=== PATIENT | female | born 1930 | race Caucasian/White ===

== ENCOUNTER → 2016-04-12 | Outpatient (CLI) | payer BC ==
[~2016-04-12] MED LIST: ADVIN10/60 INH; AMLO-110 PO; CALC500C70 PO; COEN1CAP28 PO; ESCI10TA17 PO; MULTCHW PO; PANC6000 PO; POTA20TA13 PO; PRAV20TA PO
--- NOTE | 2016-04-12 17:12 | DIAGNOSTIC IMAGING REPORT ---
LEFT HUMERUS MIN 2 VIEWS ROUTINE, LEFT ELBOW MIN 3 VIEWS ROUTINE, LEFT FOREARM 2 VIEWS ROUTINE CLINICAL HISTORY: Fall. Left upper extremity pain. COMPARISON STUDY: None. FINDINGS: No acute fracture or dislocation within the humerus. Displacement the posterior and anterior humeral fat pads consistent with an elbow effusion. No dislocation within the left elbow. Moderate osteoarthritis within the left elbow. There are associated marginal osteophytes. There is medial soft tissue swelling within the elbow. Well-corticated ossific density anterior to the distal humerus is likely due to an old injury. No definite acute fractures identified within the left elbow. The radius and ulna appear intact. IMPRESSION: 1. Left elbow effusion. This can be seen in the setting of an occult fracture. However, no acute fracture or dislocation is identified at this time within the left humerus, left elbow, or left forearm. 2. Repeat left elbow radiograph in 2 weeks is recommended to assess for an occult fracture. 3. Medial soft tissue swelling within the left elbow. Electronically signed by: Juanpablo Valencia M.D. 04/12/2016 5:11 PM Dictated Date/Time: 04/12/2016 5:04 PM
== END | disposition home or self-care (01) ==
LOC: C.RAD 15:23
PROVIDERS: ATTEND Nurse Practitioner Family
DX: S59.912A Unspecified injury of left forearm, initial encounter (principal); S59.902A Unspecified injury of left elbow, initial encounter; M25.422 Effusion, left elbow; M79.89 Other specified soft tissue disorders; W19.XXXA Unspecified fall, initial encounter

== ENCOUNTER → 2016-04-21 | Outpatient (CLI) | payer BC | END | disposition home or self-care (01) | LOC: C.LABFOXMH 16:53 | PROVIDERS: ATTEND Internal Medicine | DX: R35.0 Frequency of micturition (principal) ==

== ENCOUNTER → 2016-04-22 | Outpatient (CLI) | payer BC ==
[2016-04-22 08:36] LABS: HEMATOCRIT 43.4 % (37-47); MEAN CELL VOLUME 90.6 fL (80-100); MEAN CORPUSCULAR HEMOGLOBIN 30.1 pg (25-34); MEAN CORPUSCULAR HGB CONC 33.2 g/dl (32-36); MEAN PLATELET VOLUME 10.5 fL (7.4-10.4); PLATELET COUNT 212 K/uL (130-400); RED BLOOD COUNT 4.79 M/uL (4.2-5.4); WHITE BLOOD COUNT 4.64 K/uL (4.8-10.8)
[2016-04-22 08:42] LABS: ALT/SGPT 25 U/L (12-78); BLOOD UREA NITROGEN 17 mg/dl (7-18); BUN/CREATININE RATIO 17.4 (10-20); CALCIUM 8.9 mg/dl (8.5-10.1); CARBON DIOXIDE 29 mmol/L (21-32); CHLORIDE 103 mmol/L (98-107); CREATININE 0.99 mg/dl (0.60-1.20); GLUCOSE 91 mg/dl (70-99); SODIUM 139 mmol/L (136-145)
[2016-04-22 08:53] LABS: ALB/GLOB RATIO 1.1 (0.9-2); ALKALINE PHOSPHATASE 124 U/L (45-117); AST/SGOT 22 U/L (15-37)
== END | disposition home or self-care (01) ==
LOC: C.LABFOXMH 08:19
PROVIDERS: ATTEND Nurse Practitioner Family
DX: R53.83 Other fatigue (principal)

== ENCOUNTER → 2016-04-26 | Outpatient (CLI) | payer BC ==
--- NOTE | 2016-04-26 11:46 | DIAGNOSTIC IMAGING REPORT ---
LEFT ELBOW 3 VIEWS CLINICAL HISTORY: Left elbow injury. FINDINGS: 3 views of the left elbow are compared to study dated 04/12/2016. The skeletal structures are osteopenic. No acute or healing fracture is clearly identified. There is no dislocation. Moderate arthritic change is identified. There are are marginal osteophytes as well as enthesophytes arising from the humeral epicondyles. Spurring is noted from the radial head. A well-corticated ossific density anterior to the distal humerus is unchanged and likely on a degenerative basis or related to remote trauma. No joint effusion is clearly seen. Dorsal soft tissue swelling is noted. IMPRESSION: 1. Osteopenia and arthritic change as above. No acute or healing fracture is clearly seen. 2. There is no definite elbow joint effusion. Dorsal soft tissue edema is noted. Electronically signed by: Scott Mitchell M.D. 04/26/2016 11:44 AM Dictated Date/Time: 04/26/2016 11:41 AM
== END | disposition home or self-care (01) ==
LOC: C.RAD 10:51
PROVIDERS: ATTEND Nurse Practitioner Family
DX: S59.902A Unspecified injury of left elbow, initial encounter (principal); W19.XXXA Unspecified fall, initial encounter

== ENCOUNTER → 2016-05-07 | Outpatient (CLI) | payer BC | END | disposition home or self-care (01) | LOC: C.LABFOXMH 17:37 | PROVIDERS: ATTEND Internal Medicine | DX: R50.9 Fever, unspecified (principal) ==

== ENCOUNTER → 2016-08-10 | Outpatient (CLI) | payer BC ==
--- NOTE | 2016-08-10 17:30 | DIAGNOSTIC IMAGING REPORT ---
L-SPINE MIN 4 VIEWS ROUTINE CLINICAL HISTORY: LOW BACK PAIN COMPARISON STUDY: 10/29/2015 FINDINGS: There are surgical clips within the right upper quadrant consistent with a prior cholecystectomy. There are moderately advanced multilevel degenerative changes similar to the preceding study. There is 3.7 mm of anterior subluxation of C3 on C4. There is 9 mm anterior subluxation of C4 on C5. Both these findings were present on the prior study. No acute fractures are visualized. There is a transitional L5 vertebra with excessively transverse process sacral articulation on the left. IMPRESSION: 1. No acute fractures. 2. Multilevel degenerative change. Multilevel facet joint arthropathy. 3. Stable anterolisthesis of L3 on L4 and L4 on L5 4. 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 08/10/2016 5:29 PM Dictated Date/Time: 08/10/2016 5:27 PM
== END | disposition home or self-care (01) ==
LOC: C.RAD 16:53
PROVIDERS: ATTEND Internal Medicine
DX: M54.5 Low back pain (principal); M85.88 Other specified disorders of bone density and structure, other site

== ENCOUNTER 2017-03-26 18:43 | Emergency (ER) | payer BC ==
[~2017-03-26] VITALS: Ht 162.6 cm; Wt 82.6 kg
[2017-03-26 18:55] VITALS: Ht 162.6 cm; Wt 82.6 kg
--- NOTE | 2017-03-26 19:08 | EMERGENCY ROOM VISIT NOTE ---
History Report prepared by Ema: Wolf Vega Under the Supervision of: Dr. Stephanie Joyce D.O. First contact with patient: 19:00 Chief Complaint: LACERATION/CUT (NON-SUTURE) Stated Complaint: FELL, GASH ON RIGHT EYE BROW Nursing Triage Summary: laceration to right forehead area fell leaving a restaurant History of Present Illness The patient is an 86 year old female who presents to the Emergency Room with complaints of a sudden laceration to the right eye brow area due to a fall prior to arrival this evening. She states that she walking out of a restaurant this evening, and did not notice a curb, and proceeded to fall. She says that she now has head pain around the laceration area, as well as some right knee pain, but is able to bend the leg. The patient notes that she felt completely fine before the fall, and remembers the whole event. She denies any back pain, elbow pain, abdominal pain, or hip pain. The patient also denies any dizziness, weakness, or nausea before the incident. She adds that she took a baby Aspirin last night, but does not take any blood thinners regularly. She has a history of bilateral knee replacements. Source of History: patient, spouse/significant other, nursing staff Onset: HEAD [employer] this evening Position: other (right eyebrow area) Quality: other (laceration) Timing: other (sudden) Associated Symptoms: No LOC, No nausea, No abdominal pain, No back pain (or hip pain or elbow pain), No weakness Note: Associated symptoms: Right knee pain. Denies dizziness. Review of Systems See HPI for pertinent positives & negatives. A total of 10 systems reviewed and were otherwise negative. Past Medical & Surgical Medical Problems: (1) Age-related macular degeneration (2) Asthma, Unspecified (3) Benign hypertension (4) Cellulitis of breast (5) Concussion (6) Concussion (7) Diarrhea (8) Dyslipidemia (9) Fall (10) General Osteoarthrosis (11) Hypertension Nos (12) Lumpectomy of breast (13) Nausea and vomiting (14) Scalp hematoma (15) Sick sinus syndrome Surgical Problems: (1) Knee Joint Replacement Status (2) Lens Replacement Nec Family History Family history omitted secondary to patient's advanced age. Social History Smoking Status: Never Smoker Alcohol Use: none Drug Use: none Marital Status: Housing Status: assisted living Occupation Status: retired Current/Historical Medications Scheduled Amlodipine (Norvasc), 5 MG PO DAILY Calcium/Vitamin D (Os-Venkata 500 Plus D), 1 TAB PO DAILY Carvedilol (Carvedilol), 3.125 MG PO BID Coenzyme Q10 (Ubidecarenone) (Coq10), 200 MG PO DAILY Escitalopram (Lexapro), 10 MG PO DAILY Multiple Vitamins W/ Minerals (Centrum Silver), 1 TAB PO DAILY Pancrelipase (Lipase-Protease- (Creon), 1 CAP PO TIDM Potassium Chloride Microencaps (Potassium Chloride Er), 20 MEQ PO DAILY Pravastatin (Pravachol ), 20 MG PO DAILY Scheduled PRN Fluticasone Prop/Salmeterol (Advair Diskus 100/50 60 Dose), 1 PUFF INH BID PRN for SOB/Wheezing Allergies Coded Allergies: Midazolam (Verified Allergy, Severe, ANAPHYLAXIS, 03/26/17) Atorvastatin (Verified Allergy, Unknown, myalgia, 03/26/17) Niacin (Verified Adverse Reaction, Unknown, flushing, 03/26/17) Physical Exam Vital Signs Date Time Temp Pulse Resp B/P (MAP) Pulse Ox O2 Delivery O2 Flow Rate FiO2 03/27/17 00:08 70 20 170/93 92 Room Air 03/26/17 22:24 71 20 178/82 92 Room Air 03/26/17 20:30 36.7 70 20 161/101 94 Room Air 03/26/17 18:55 36.7 83 20 146/81 92 Room Air Physical Exam GENERAL: alert, well appearing, well nourished, no distress, non-toxic EYE EXAM: Normal conjunctiva, PERRL and EOM's grossly intact, pt states vision is normal. No evidence of hyphema or subconjunctival hemorrhage. OROPHARYNX: Large area of swelling and contusion superior to right eyebrow. Small laceration noted, no active bleeding. Slight ecchymosis noted to eyelids superiorly. Mild pain along superior orbital ridge. No evidence of dental trauma. NECK: supple, no nuchal rigidity, no adenopathy, non-tender LUNGS: Clear to auscultation. Normal chest wall mechanics HEART: no murmurs, S1 normal and S2 normal ABDOMEN: abdomen soft, non-tender, normo-active bowel sounds, no masses, no rebound or guarding. BACK: Back is symmetrical on inspection and there is no deformity, no midline tenderness SKIN: no rashes and no bruising UPPER EXTREMITIES: upper extremities are grossly normal. PELVIS: Pelvis stable, no hip tenderness. LOWER EXTREMITIES: Superficial abrasion to right knee, full range of motion. Vertical midline incision consistent with prior knee replacements, normal bilateral lower extremity pulses. No pitting edema. NEURO EXAM: Normal sensorium, cranial nerves II-XII grossly intact, normal speech, no gross weakness of arms, no gross weakness of legs. Medical Decision & Procedures ER Provider Diagnostic Interpretation: Radiology results have been interpreted by the radiologist and reviewed by me. RIGHT KNEE 2 VIEWS HISTORY: Right knee pain. trauma COMPARISON: Right knee 07/23/2015. FINDINGS: There is a right total knee arthroplasty. The hardware appears intact. No fracture or dislocation. No significant knee effusion. Anterior medial soft tissue swelling. No radiopaque foreign bodies. IMPRESSION: No fracture or dislocation within the right knee. Electronically signed by: Juanpablo Valencia M.D. 03/26/2017 7:44 PM Dictated Date/Time: 03/26/2017 7:[address]AST CT DOSE: 1519.59 mGy.cm HISTORY: Head injury. trauma TECHNIQUE: Multiaxial CT images of the head were performed without the use of intravenous contrast. Automated exposure control was utilized for this study. A dose lowering technique was utilized adhering to the principles of ALARA. Comparison: Head CT 08/28/2014. Findings: The paranasal sinuses and mastoid air cells are clear. The calvarium and skull base are intact. There is no mass, midline shift, acute infarct. White matter hypodensity is nonspecific but suggestive of microvascular ischemic change. The ventricles and sulci demonstrate mild age-related involutional changes. There is a right supraorbital soft tissue hematoma with a laceration. Subtle 1 mm extra-axial hyperdensity within the right anterior frontal region best in image 12. This may represent a cortical bridging vein. However this is deep to the soft tissue swelling and could represent a tiny subdural hematoma. Stable 14 mm calcification along the anterior falx. This likely represents a meningioma. Impression: 1. Subtle 1 mm extra-axial hyperdensity within the right anterior frontal region. This may represent a cortical bridging vein. However this is deep to the soft tissue swelling and could represent a tiny subdural hematoma. Therefore, follow-up head CT in 12 hours is recommended to ensure stability. 2. Right supraorbital soft tissue laceration. Electronically signed by: Juanpablo Valencia M.D. 03/26/2017 8:14 PM Dictated Date/Time: 03/26/2017 8:[address] DOSE: HISTORY: Neck pain. Fall. trauma TECHNIQUE: Multiaxial CT images of the cervical spine were performed and reformatted in the sagittal and coronal plane without the use of contrast. A dose lowering technique was utilized adhering to the principles of ALARA. COMPARISON: Cervical spine CT 09/24/2013. FINDINGS: No fractures. No subluxation. Prevertebral soft tissues and the C1-C2 interval are intact. No pneumothorax. Stable advanced degenerative changes within the lower cervical spine. There is straightening of the cervical spine. IMPRESSION: No fractures within the cervical spine. Electronically signed by: Juanpablo Valencia M.D. 03/26/2017 8:19 PM Dictated Date/Time: 03/26/2017 8:[address] head: Comparison: 03/26/2017 and 1955 No acute intracranial abnormality. Chronic small vessel ischemic disease and senescent changes. Small meningioma along the left interhemispheric fissure. Moderate sized frontal scalp soft tissue hematoma. No acute osseous abnormality. Mild mucosal thickening of paranasal sinuses. Radiologist: Ron Oliveira M.D. Medications Administered Medications (Trade) Dose Ordered Sig/Desean Route Start Time Stop Time Status Last Admin Dose Admin Diphtheria/ Pertussis/Tetanus Vacc (Adacel Inj) 0.5 ml ONCE ONCE IM. 03/26/17 19:45 03/26/17 19:46 DC 03/26/17 19:43 0.5 ML Acetaminophen (Tylenol Tab) 650 mg NOW STAT PO 03/26/17 21:06 03/26/17 21:07 DC 03/26/17 21:56 650 MG ED Course 1899: The patient was evaluated in room B4B. A complete history and physical exam was performed. 1944: Ordered Adacel Inj 0.5 ml IM. 2051: I reevaluated the patient and had an extensive bedside conversation. She prefers not to be transferred to a trauma facility. I recommended a repeat CT here and the patient and her are agreeable. Repeat exam was unchanged with exception of mild migration of the patient's ecchymosis inferiorly from the supraorbital ridge down into the right superior eyelid. 0010: Additional reevaluation at bedside. Patient states she feels improved. Swelling has diminished, although appearance of ecchymosis is following gravity and is now more pronounced in her periorbital region. Patient has gotten up to the bathroom and ambulated with a steady gait, denies dizziness or lightheadedness. No nausea or vomiting, patient denies any vision changes. Extensive bedside discussion with patient as well as daughter and son-in-law which are now present at bedside regarding her condition, imaging results, care for her wound, close follow-up with family doctor, symptoms to watch and return for. Medical Decision Differential diagnoses include major intracranial, cervical, spinal, thoracic, abdominal, pelvic and neurologic injury. Fracture, contusion, sprain, strain, laceration, abrasions included as well. Patient well-appearing here and no evolving symptoms to suggest increased intracranial bleeding or increased intracranial pressure. Small abrasion noted over the area of the initial contusion to the inferior aspect of the right forehead in the right supraorbital region. During additional observation time in the emergency department some of the ecchymosis and swelling noted there began to migrate inferiorly. Patient with no other evidence of extremity trauma. No changes in exam on repeat evaluations to suggest any evolving occult traumatic injury. Patient's vital signs stable throughout. Repeat CAT scan did not show any residual or evolving intracranial hemorrhage. Patient and relating here with steady gait, tolerating sips of by mouth at bedside. Extensive bedside discussion with her as well as additional family that had since joining them regarding her diagnosis, imaging findings, need for close follow-up, symptoms to watch and return for, treatment of pain at home, precautions in light of her trauma, patient and her family verbalized understanding were agreeable with plan. Medication Reconcilliation Current Medication List: was personally reviewed by me Blood Pressure Screening Patient's blood pressure: Elevated blood pressure Blood pressure disposition: Elevated BP felt to be situational Impression Primary Impression: Closed head injury Additional Impressions: Scalp hematoma Fall Abrasion Critical Care I have personally spent greater than 35 minutes of critical care time in the direct management of this patient. This includes bedside care, interpretation of diagnostic studies, and testing, discussion with consultants, patient, and family members, and other required patient management activities. This 35 minutes is in excess of all separately billable procedures. Scribe Attestation The scribe's documentation has been prepared under my direction and personally reviewed by me in its entirety. I confirm that the note above accurately reflects all work, treatment, procedures, and medical decision making performed by me. Departure Information Dispostion Home / Self-Care Referrals Kp Nunez M.D. (PCP) Patient Instructions My [facility] Additional Instructions Please continue regular medications as prescribed. You may use Tylenol for any pain. Do not take aspirin, ibuprofen, Advil, Aleve, Motrin, naproxen. Please change the dressing to the wound daily. The bruising noted will slowly appear to migrate down into your face. This is normal. You may use ice intermittently to help with pain. You may eat normally. Please do not drink any alcohol. If you develop a worsening headache, nausea or vomiting, dizziness , or vision changes, please return to the emergency room immediately. If you have any other new or concerning symptoms please return to the ER. Please make a note that your tetanus shot was updated tonight. Problem Qualifiers Primary Impression: Closed head injury Encounter type: initial encounter Qualified Codes: S09.90XA - Unspecified injury of head, initial encounter Additional Impressions: Scalp hematoma Encounter type: initial encounter Qualified Codes: S00.03XA - Contusion of scalp, initial encounter Fall Encounter type: initial encounter Qualified Codes: W19.XXXA - Unspecified fall, initial encounter
[2017-03-26] MEDS ORDERED: DIPHTHERIA/TETANUS/PERTUSSIS 0.5 ML SYR/VIAL IM. ONE (19:45)
--- NOTE | 2017-03-26 19:45 | DIAGNOSTIC IMAGING REPORT ---
RIGHT KNEE 2 VIEWS HISTORY: Right knee pain. trauma COMPARISON: Right knee 07/23/2015. FINDINGS: There is a right total knee arthroplasty. The hardware appears intact. No fracture or dislocation. No significant knee effusion. Anterior medial soft tissue swelling. No radiopaque foreign bodies. IMPRESSION: No fracture or dislocation within the right knee. Electronically signed by: Juanpablo Valencia M.D. 03/26/2017 7:44 PM Dictated Date/Time: 03/26/2017 7:42 PM
--- NOTE | 2017-03-26 20:15 | DIAGNOSTIC IMAGING REPORT ---
HEAD CT NONCONTRAST CT DOSE: 1519.59 mGy.cm HISTORY: Head injury. trauma TECHNIQUE: Multiaxial CT images of the head were performed without the use of intravenous contrast. Automated exposure control was utilized for this study. A dose lowering technique was utilized adhering to the principles of ALARA. Comparison: Head CT 08/28/2014. Findings: The paranasal sinuses and mastoid air cells are clear. The calvarium and skull base are intact. There is no mass, midline shift, acute infarct. White matter hypodensity is nonspecific but suggestive of microvascular ischemic change. The ventricles and sulci demonstrate mild age-related involutional changes. There is a right supraorbital soft tissue hematoma with a laceration. Subtle 1 mm extra-axial hyperdensity within the right anterior frontal region best in image 12. This may represent a cortical bridging vein. However this is deep to the soft tissue swelling and could represent a tiny subdural hematoma. Stable 14 mm calcification along the anterior falx. This likely represents a meningioma. Impression: 1. Subtle 1 mm extra-axial hyperdensity within the right anterior frontal region. This may represent a cortical bridging vein. However this is deep to the soft tissue swelling and could represent a tiny subdural hematoma. Therefore, follow-up head CT in 12 hours is recommended to ensure stability. 2. Right supraorbital soft tissue laceration. Electronically signed by: Juanpablo Valencia M.D. 03/26/2017 8:14 PM Dictated Date/Time: 03/26/2017 8:08 PM
--- NOTE | 2017-03-26 20:20 | DIAGNOSTIC IMAGING REPORT ---
CERVICAL SPINE CT CT DOSE: HISTORY: Neck pain. Fall. trauma TECHNIQUE: Multiaxial CT images of the cervical spine were performed and reformatted in the sagittal and coronal plane without the use of contrast. A dose lowering technique was utilized adhering to the principles of ALARA. COMPARISON: Cervical spine CT 09/24/2013. FINDINGS: No fractures. No subluxation. Prevertebral soft tissues and the C1-C2 interval are intact. No pneumothorax. Stable advanced degenerative changes within the lower cervical spine. There is straightening of the cervical spine. IMPRESSION: No fractures within the cervical spine. Electronically signed by: Juanpablo Valencia M.D. 03/26/2017 8:19 PM Dictated Date/Time: 03/26/2017 8:14 PM
[2017-03-26 20:30] VITALS: TEMP 36.7
[2017-03-26] MEDS ORDERED: ACETAMINOPHEN 325 MG TAB PO STA (21:06)
[2017-03-26] MEDS ORDERED: COEN1CAP7 PO (21:20)
[2017-03-26] MEDS ORDERED: CRG3125 PO (21:20)
[2017-03-27 00:08] VITALS: BP 170/93; PULSE 70; O2SAT 92
--- NOTE | 2017-03-27 08:07 | DIAGNOSTIC IMAGING REPORT ---
CT OF THE HEAD WITHOUT CONTRAST CLINICAL HISTORY: trauma, repeat for comparison/evolution COMPARISON STUDY: Head CT August 28, 2014 and March 26, 2017 at 7:[address] DOSE: 614.27 mGy.cm TECHNIQUE: Helical axial images of the head were obtained without IV contrast. Automated exposure control was utilized for the study. A dose lowering technique was utilized adhering to the principles of ALARA. FINDINGS: No acute intracranial hemorrhage, midline shift or mass effect is present. A 1.5 cm left parafalcine meningioma is similar to head CT of August 28, 2014. Ventricular dilatation is unchanged and likely due to atrophy. The basilar cisterns are patent. There are no extra-axial collections. The extra axial hyperdensity overlying the anterior right frontal region represents a vein. There is no acute intracranial hemorrhage. This is unchanged since head CT performed earlier today. Globes are intact. A right periorbital hematoma has slightly increased. Associated right supraorbital laceration is noted. IMPRESSION: 1. No acute intracranial hemorrhage. The abnormality overlying into right frontal lobe is shown to represent a cortical bridging vein on this exam. 2. Right periorbital contusion with supraorbital laceration. Right globe intact with no retrobulbar hematoma. Electronically signed by: Kamari Angulo M.D. 03/27/2017 8:06 AM Dictated Date/Time: 03/27/2017 7:59 AM
== END 2017-03-27 00:36 | disposition home or self-care (01) ==
LOC: C.EDB 18:44
DX: S00.03XA Contusion of scalp, initial encounter (principal); S80.211A Abrasion, right knee, initial encounter; W10.1XXA Fall (on)(from) sidewalk curb, initial encounter; Y93.01 Activity, walking, marching and hiking; Y99.8 Other external cause status; Y92.89 Other specified places as the place of occurrence of the external cause; J45.909 Unspecified asthma, uncomplicated; I10 Essential (primary) hypertension; E78.5 Hyperlipidemia, unspecified; Z23 Encounter for immunization; Z87.820 Personal history of traumatic brain injury; Z91.81 History of falling; Z96.653 Presence of artificial knee joint, bilateral; Z96.1 Presence of intraocular lens; Z79.899 Other long term (current) drug therapy

== ENCOUNTER → 2017-03-29 | Outpatient (CLI) | payer BC ==
[~2017-03-29] MED LIST changes: -COEN1CAP28 PO; +COEN1CAP7 PO; +CRG3125 PO
[2017-03-29 09:56] LABS: BLOOD UREA NITROGEN 19 mg/dl (7-18); CALCIUM 8.9 mg/dl (8.5-10.1); CARBON DIOXIDE 29 mmol/L (21-32); CHOLESTEROL 205 mg/dl (0-200); CREATININE 0.94 mg/dl (0.60-1.20); GLUCOSE 99 mg/dl (70-99); POTASSIUM 3.7 mmol/L (3.5-5.1); SODIUM 140 mmol/L (136-145)
[2017-03-29 09:59] LABS: LDL CHOLESTEROL CALCULATED 131 mg/dl
== END | disposition home or self-care (01) ==
LOC: C.LABFOXMH 08:51
PROVIDERS: ATTEND Internal Medicine
DX: E87.0 Hyperosmolality and hypernatremia (principal)